=== PATIENT | female | born 1955 | race Caucasian/White ===

== ENCOUNTER 2016-03-07 15:05 | Inpatient (IN) | payer OTHER, BC ==
[2016-03-07] MEDS ORDERED: HYDROmorphONE/DILAUDID 1 MG/ML SYR IVP ONE (15:11)
[2016-03-07] MEDS ORDERED: NS 1,000 ML IV ONE (15:11)
--- NOTE | 2016-03-07 15:13 | EDPHY ---
H & P HPI/ROS: CHIEF COMPLAINT: Left hip pain HISTORY OF PRESENT ILLNESS: The patient is a 61 y/o female arriving via EMS complaining of left hip pain secondary to a fall at [facility] today. Per EMS she got off the ski lift and lost control then fell 2-3 feet directly onto her left hip. She had immediate pain and EMS noted deformity to her left hip. She was helmeted and denies striking her head, neck, or back. She did not lose consciousness. She denies weakness, paresthesias, abdominal pain, chest pain, vaginal bleeding, incontinence, or other injuries. She does not use anticoagulants. EMS and ski patroller administered 100mcg IV fentanyl and 2.5mg IV Valium for pain. She has a history of osteoporosis and hypothyroidism, but is otherwise healthy. REVIEW OF SYSTEMS: Constitutional: denies: chills, fever, recent illness, recent injury EENTM: denies: blurred vision, double vision, nose congestion Respiratory: denies: cough, shortness of breath Cardiac: denies: chest pain, irregular heart rate, lightheadedness, palpitations Gastrointestinal/Abdominal: denies: abdominal pain, diarrhea, nausea, vomiting, blood streaked stools Genitourinary: denies: dysuria, frequency, hematuria, pain Musculoskeletal:see HPI Skin: denies: lesions, rash, jaundice, bruising Neurological: denies: headache, numbness, paresthesia, tingling, dizziness, weakness Hematologic/Lymphatic: denies: blood clots, easy bleeding, easy bruising Immunologic/allergic: denies: HIV/AIDS, transplant PRIOR MEDICAL HISTORY: Osteoporosis, hypothyroidism SOCIAL HISTORY: Lives [id number], Smoker EXAM: GENERAL: Well-appearing, well-nourished and in no acute distress. HEAD: Atraumatic, normocephalic. EYES: Pupils equal round and reactive to light, extraocular movements intact, sclera anicteric, conjunctiva are normal. ENT: TMs normal, nares patent, oropharynx clear without exudates. Moist mucous membranes. NECK: Normal range of motion, supple without lymphadenopathy or JVD. LUNGS: Breath sounds clear to auscultation bilaterally and equal. No wheezes rales or rhonchi. HEART: Regular rate and rhythm without murmurs, rubs or gallops. ABDOMEN: Soft, nontender, normoactive bowel sounds. No guarding, no rebound. No masses appreciated. BACK: No CVA tenderness, no spinal tenderness, step-offs or deformities EXTREMITIES: Large hematoma to left anterior femur with tenderness and firmness , normal pulses and movement distally. Other extremities Normal range of motion , no pitting or edema. No clubbing or cyanosis. NEUROLOGICAL: Cranial nerves II through XII grossly intact. Normal speech. 5/ 5 strength, normal movement in all extremities with except of left hip due to pain, normal sensation PSYCH: Normal mood, normal affect. SKIN: Warm, dry, normal turgor, no visible rashes or lesions. Source: Patient, EMS Exam Limitations: No limitations - Medical/Surgical History Hx Asthma: No Hx Chronic Respiratory Disease: No Hx Diabetes: No Hx Cardiac Disease: No Hx Renal Disease: No Hx Cirrhosis: No Hx Alcoholism: No Hx HIV/AIDS: No Hx Splenectomy or Spleen Trauma: No - Family History Significant Family History: No pertinent family hx - Social History Smoking Status: Current every day smoker Drug Use: None Constitutional: Initial Vital Signs Temperature (C) 37.3 C 03/07/16 15:24 Heart Rate 75 03/07/16 15:24 Respiratory Rate 18 03/07/16 15:24 Blood Pressure 180/100 H 03/07/16 15:24 O2 Sat (%) 99 03/07/16 15:24 O2 Delivery Mode Nasal Cannula O2 (L/minute) 2 Allergies/Adverse Reactions: adhesive Allergy (Verified 03/07/16 15:27) codeine Allergy (Verified 03/07/16 16:37) Itching ibuprofen Allergy (Verified 03/07/16 15:28) Iodinated Contrast Media - Oral and Allergy (Verified 03/07/16 16:36) shellfish derived Allergy (Verified 03/07/16 15:28) Tetracyclines Allergy (Verified 03/07/16 15:27) Home Medications: Medication Instructions Recorded Thyroid [[place] Thyroid 60 MG (*)] 60 mg PO DAILY10 03/07/16 Medical Decision Making - Diagnostics Imaging: X-ray: [Pelvis x-ray] was obtained. I viewed the images myself on the PACS system. My interpretation of the images is: proximal left femur fracture, displaced. The radiologist interpretation is [pending at this time]. I discussed the x-ray findings with the [patient]. ED Course/Re-evaluation: MDM: This is a healthy 61 y/o female, with a history of osteoporosis, presenting with a large, firm, and tender hematoma to her left anterior femur secondary to a fall while skiing today. Plan for pain management and x-ray imaging. IV established by EMS. Labs drawn including CBC, CHEM, PTPTT. 1mg IV Dilaudid and 1L IV NS administered. 1345: Reassessed patient. Her pain is well controlled at this time. Discussed x- ray results. Her last PO intake was 08:00 this morning. 1615: Consulted with Dr. Saavedra, orthopedist, he plans to take patient to OR today. DIFFERENTIALS: Partial list of the Differential diagnosis considered include but were not limited to: Fracture, hematoma, pelvic fracture and although unlikely based on the history and physical exam, I also considered dislocation, low back injury. I discussed these differential diagnoses and the plan with the patient as well as the usual and expected course. The patient understands that the diagnosis is provisional and that in medicine we are not always correct and that further workup is often warranted. Usual and customary warnings were given. All of the patient's questions were answered. The patient was instructed to return to the emergency department should the symptoms at all worsen or return, otherwise to follow up with the physician as we discussed. - Data Points Laboratory Results: Laboratory Results 03/07/16 17:20 03/07/16 17:20 Medications Given: Discontinued Medications Hydromorphone HCl (Dilaudid) 1 mg IVP EDNOW ONE Stop: 03/07/16 15:12 Last Admin: 03/07/16 15:09 Dose: 1 mg Sodium Chloride (Ns) 1,000 mls @ 0 mls/hr IV EDNOW ONE PRN Reason: Wide Open Stop: 03/07/16 15:12 Last Admin: 03/07/16 15:31 Dose: 1,000 mls Cefazolin Sodium/Dextrose (Ancef 2 Gm (Premix)) 100 mls @ 200 mls/hr IV ONCALL ONE PRN Reason: Protocol Stop: 03/07/16 17:24 Last Admin: 03/07/16 22:11 Dose: Not Given Cefazolin Sodium/Dextrose (Ancef 1 Gm (Premix)) 50 mls @ 200 mls/hr IV Q8HRS GABI PRN Reason: Protocol Stop: 03/08/16 06:14 Last Admin: 03/07/16 22:12 Dose: Not Given Cefazolin Sodium/Dextrose (Ancef 1 Gm (Premix)) 50 mls @ 200 mls/hr IV Q8H GABI PRN Reason: Protocol Stop: 03/08/16 11:14 Last Admin: 03/08/16 11:29 Dose: 50 mls Departure - Departure Disposition: [facility] Acute Clinical Impression: Femur fracture, left Qualifiers: Qualifier Code: (S72.352A) Displaced comminuted fracture of shaft of left femur , initial encounter for closed fracture Condition: Good Report Scribed for: Bebeto Rosario Report Scribed by: Jordana Weems Date of Report: 03/07/16 Time of Report: 15:17
--- NOTE | 2016-03-07 16:47 | DX ---
AP Supine Pelvis and Left Femur Clinical History: 61-year-old female with left hip pain after a fall while skiing. Comparison Study: None. Findings: AP SUPINE PELVIS, at 3:29 p.m.: There is an acute mildly-displaced and partially comminuted left fem oral intertrochanteric fracture, with some associated varus angulation. The femoral head is still se ated within the acetabulum. The ischial pubic rami are intact, and the right hip is anatomically ali gned. Multilevel lower lumbar degenerative change is seen. There is no symphysis pubis or SI joint diastasis. There are phleboliths in the right hemipelvis. Impression: Acute left femoral intertrochanteric fracture, with partial comminution and varus angula tion. When clinically feasible, a DEXA scan is suggested to determine if there is systemic bone demineraliz ation. LEFT FEMUR (Four Views, at 3:30 p.m.): Again noted is an acute left femoral intertrochanteric fractu re, with partial comminution and varus angulation. The remainder of the left femur is essentially un remarkable. There is a prominent enthesophyte along the anterosuperior patella where the quadriceps tendon inserts. There is no suprapatellar joint effusion. There is cloth artifact, which obscures p ortions of the femoral osseous anatomy. Impression: Acute left femoral intertrochanteric fracture, with partial comminution and varus angula tion.
[2016-03-07] MEDS ORDERED: ceFAZolin 2 GM/DEXTROSE 100 ML IV ONE (16:55)
[2016-03-07] MEDS ORDERED: CEFAZOLIN 2 GM/DEXTROSE/100 ML BAG IV ONE (17:12)
[2016-03-07] MEDS ORDERED: BUPIVACAINE/EPI 0.5% 30 ML SDV ONE (17:17)
[2016-03-07 17:33] LABS: % IMMATURE GRANULYOCYTES 0.3 % (0.0-1.1); ABSOLUTE IMMATURE GRANULOCYTES 0.05 10^3/uL (0.00-0.10); ADD DIFF? NO; ADD MORPH? NO; ADD SCAN? NO; ATYPICAL LYMPHOCYTE FLAG 0 (0-99); FRAGMENT RBC FLAG 0 (0-99); HEMATOCRIT 36.4 % (38.0-47.0); HEMOGLOBIN 12.7 g/dL (12.6-16.3); LEFT SHIFT FLG 20 (0-99); LIPEMIA HEMOLYSIS FLAG 90 (0-99); MEAN CELL HEMOGLOBIN 32.3 pg (27.9-34.1); MEAN CELL HEMOGLOBIN CONCENTR. 34.9 g/dL (32.4-36.7); MEAN CELL VOLUME 92.6 fL (81.5-99.8); MEAN PLATELET VOLUME 9.6 fL (8.7-11.7); PLATELET CLUMPS FLAG 0 (0-99); PLATELET COUNT 227 10^3/uL (150-400); RED BLOOD CELL COUNT 3.93 10^6/uL (4.18-5.33); RED CELL DISTRIBUTION WIDTH 12.1 % (11.5-15.2)
[2016-03-07 17:43] LABS: APTT 26.3 SEC (23.0-38.0)
[2016-03-07 17:45] LABS: ANION GAP 10 mEq/L (8-16); CALCIUM 8.9 mg/dL (8.5-10.4); CARBON DIOXIDE 23 mEq/l (22-31); CHLORIDE 107 mEq/L (97-110); CREATININE 0.7 mg/dL (0.6-1.0); GLOMERULAR FILTRATION RATE > 60; GLUCOSE 101 mg/dL (70-100); POTASSIUM 3.7 mEq/L (3.5-5.2); SODIUM 140 mEq/L (134-144)
--- NOTE | 2016-03-07 17:46 | GCON ---
[f rep st] CONSULTATION ORTHOPEDIC CONSULTATION. DATE OF CONSULTATION: 03/07/2016 REASON FOR CONSULTATION: Left intertrochanteric hip fracture. HISTORY OF PRESENT ILLNESS: The patient is a 61-year-old female, who fell off the chair lift at [facility] earlier today, was brought by EMS to the emergency room. X-rays were obtained, which shavonne wed a displaced intertrochanteric-subtrochanteric hip fracture on the left. I was consulted, saw her in the emergency department. PAST MEDICAL HISTORY: Osteoporosis, hypothyroidism. SOCIAL HISTORY: She does smoke 1 pack per day. Occasional alcohol use. MEDICATIONS: Victor Thyroid. ALLERGIES: Codeine, although she can take Percocet, ibuprofen, iodine, tetracycline, and tape adhesi ve, although she does do okay with cloth tape. REVIEW OF SYSTEMS: No shortness of breath or chest pain. No other obvious injuries. Otherwise, rev iew of systems is negative. PHYSICAL EXAM: A healthy appearing 61-year-old female. Her and cousin are at the bedside. VITAL SIGNS: Blood pressure is 180/100, heart rate 75, respiratory rate 18, oxygen saturation 99% on room air, temperature is 37.3. HEENT: Normocephalic, atraumatic. Extraocular muscles are intact. NECK: Supple. There is no lymphadenopathy. No JVD. CHEST: Clear to auscultation. CARDIOVASCULA R: Regular rate and rhythm. ABDOMEN: Soft, nontender, nondistended. EXTREMITY EXAM: Left hip: T here is some bruising over the greater trochanter, a little bit of external rotation. There is no sh ortening. Pain with any movement. Compartments are soft, including the calf, 5/5 ankle dorsiflexion and plantar flexion, 2+ dorsalis pedis and posterior tibial pulses. X-RAYS: Two views of the hip show the displaced intertrochanteric/subtrochanteric fracture of the le ft hip. No significant osteoarthritis in the hip. ASSESSMENT: Intertrochanteric left hip fracture. PLAN: I recommend proceeding with intramedullary nailing of the left hip. Risks and benefits of the surgery, including infection, postoperative blood clots, limited weightbearing were all discussed. She understands these risks and wished to proceed. We will plan on surgery at about 6 o'clock karsten zelaya. We will keep her n.p.o. /[id number]/MODL
[2016-03-07 18:00] LABS: INR 1.05 (0.83-1.16); PROTIME(PATIENT) 13.6 SEC (12.0-15.0)
[2016-03-07] MEDS ORDERED: MIDAZOLAM 2 MG/2 ML VIAL ONE (19:10)
[2016-03-07] MEDS ORDERED: PROPOFOL 200 MG/20 ML VIAL ONE (19:12)
[2016-03-07] MEDS ORDERED: LIDOCAINE 2% 5 ML SDV ONE (19:12)
[2016-03-07] MEDS ORDERED: fentaNYL 100 MCG/2 ML INJ ONE ×3 (19:12→20:57)
[2016-03-07] MEDS ORDERED: MAGNESIUM HYDROXIDE 30 ML UDCUP PO PRN (19:20)
[2016-03-07] MEDS ORDERED: ONDANSETRON 4 MG/2 ML VIAL IVP PRN (19:20)
[2016-03-07] MEDS ORDERED: BISACODYL 10 MG SUPP PR PRN (19:20)
[2016-03-07] MEDS ORDERED: TEMAZEPAM 15 MG CAP PO PRN (19:20)
[2016-03-07] MEDS ORDERED: POLYETHYLENE GLYCOL 3350 17 GM PKT PO PRN (19:20)
[2016-03-07] MEDS ORDERED: LACTULOSE 20 GM/30 ML UDCUP PO PRN (19:20)
[2016-03-07] MEDS ORDERED: DEXAMETHASONE 4 MG/ML VIAL ONE (19:39)
--- NOTE | 2016-03-07 20:50 | DX ---
Intraoperative fluoroscopy during left femur ORIF. March 07, 2016. Discussion: 78.7 seconds of intraoperative fluoroscopy utilized by Dr. Saavedra during left femur kia carlos. Matrix radiographs demonstrate placement of a left femoral nail bridging a mid diaphyseal fract ure and an intratrochanteric fracture. No hardware complication. Impression: 1. Intraoperative fluoroscopy during left femoral ORIF.
[2016-03-07] MEDS ORDERED: MEPERIDINE 25 MG/ML SYR ONE (20:57)
--- NOTE | 2016-03-07 20:57 | POSTOPPROG ---
Post Op Note Date of Operation: 03/07/16 Surgeon: Ruben Saavedra Anesthesiologist: naheed Anesthesia: GET(General Endotracheal) Pre-op Diagnosis: Lt subtroch fracture Post-op Diagnosis: same Procedure: LT TFN Inf/Abcess present in the surg proc area at time of surgery?: No EBL: 50-100 Complications: none
--- NOTE | 2016-03-07 21:16 | DX ---
AP pelvis, 2 views. March 07, 2016. History: Postop. Findings: Surgical operative nail placement involves the left femur, reducing an intratrochanteric pr oximal femoral fracture and 2 oblique midshaft diaphyseal fractures. No hardware complication. Impression: 1. Operative internal fixation of left femoral fractures with intramedullary nail.
--- NOTE | 2016-03-07 22:22 | GOP ---
[f rep st] OPERATIVE REPORT DATE OF OPERATION: 03/07/2016 SURGEON: Ruben Saavedra MD ANESTHESIA: General. ANESTHESIOLOGIST: 1. Devin Connolly MD. 2. Ramón Amin MD. PREOPERATIVE DIAGNOSIS: Left subtrochanteric hip fracture. POSTOPERATIVE DIAGNOSIS: Left subtrochanteric hip fracture. PROCEDURE PERFORMED: Intramedullary nailing, left hip. FINDINGS: ESTIMATED BLOOD LOSS: 100 mL. INDICATIONS: The patient is a 61-year-old female who fell skiing today, sustained a subtrochanteric fracture. Decision was made to proceed with operative fixation. DESCRIPTION OF PROCEDURE: She was taken to the operating room while on the gurney. Dr. Connolly adm inistered general endotracheal tube anesthesia. She was then transferred onto the fracture table. L eft lower extremity was placed in a traction boot. Right lower extremity was placed in a well-padded well-leg schulte and moved out of the way. I applied gentle traction, internal rotation, reduced the fracture, confirmed its position with AP lateral fluoroscopic imaging. We then prepped the left hip in the usual sterile fashion, got my starting point, made a small gela incision in the skin. Using our entry reamer, entered the femoral canal. She measured to a size 11 mm. This was tapped into chay ce. We placed our external jig, drilled our guidewire into our head and neck, and placed our 90 mm s piral blade, tapped it in place. Distal locking screw. As I was placing the jig, I noticed there wa s a small crack distally around the tip of the nail. Decided to remove the nail go to a long nail to protect that area of the femur in case that was going to crack all the way through. So, long guidew francisco was passed over the nail and nail was removed. Spiral blade was removed. We changed it out. We reamed up to a size 11.5. Placed a size 10 mm x 340 mm nail over the external wire. Wire was pulle d. I was able to use the previous spiral blade and place it into the head and neck with a good, secu re fixation. One screw was placed distally using perfect cowlitz techniques. Final imaging was obtai aly which showed satisfactory reduction of the proximal fracture. Difficult to visualize the fractur e on the tip of the previous nail. It appeared well aligned. Wounds were irrigated. Deep layers cl osed with 0 Vicryl, superficial layers closed with 2-0 Vicryl, skin was closed with bartolo. I insti lled 20 mL of 0.5% Marcaine with epinephrine around the incision. Sterile dressing was applied. Pat ient was awakened from anesthesia, taken to the recovery room in satisfactory condition. There were no immediate intraoperative complications. COMPLICATIONS: None. DRAINS: None. IMPLANTS: Synthes long TFN nail 10 x 340 mm. One distal locking screw. /[id number]/MODL
[2016-03-07] MEDS: LR 1,000 ML IV SCH (22:53)
[2016-03-07] MEDS: DIAZEPAM 5 MG TAB PO PRN (22:54)
[2016-03-07] MEDS: SENNOSIDES/DOCUSATE SODIUM TAB PO SCH (22:54)
[2016-03-08 04:47] LABS: HEMATOCRIT 27.7 % (38.0-47.0); HEMOGLOBIN 9.3 g/dL (12.6-16.3)
[2016-03-08] MEDS: LR 1,000 ML IV SCH (05:47)
[2016-03-08] MEDS: DIAZEPAM 5 MG TAB PO PRN ×4 (05:48→23:54)
[2016-03-08] MEDS: OXYCODONE/APAP 5/325 TAB PO PRN ×4 (05:48→18:11)
[2016-03-08] MEDS: SENNOSIDES/DOCUSATE SODIUM TAB PO SCH ×2 (09:43→22:25)
[2016-03-08] MEDS: RIVAROXABAN 10 MG TAB PO SCH (09:44)
[2016-03-08] MEDS: THYROID 60 MG TAB PO SCH (09:52)
--- NOTE | 2016-03-08 17:43 | SOAPPROG ---
[facility] Progress Note Assessment/Plan: Assessment: Plan: 03/08/16 17:41 POD#1 TFN Lt femur 50% wbing x 6 weeks xarelto x 21 days Subjective: feeling a little better tonight Objective: dressing in place small amount bloody drainage leg lengths equal calf soft 5/5 df/pf 2+ dp/tp Vital Signs Temp Pulse Resp BP Pulse Ox 37.3 C 94 14 103/57 L 96 03/08/16 15:30 03/08/16 15:30 03/08/16 15:30 03/08/16 15:30 03/08/16 15:30 Laboratory Results 03/08/16 04:11 03/07/16 03/08/16 03/09/16 05:59 05:59 05:59 Intake Total 1700 Output Total 100 900 Balance 1600 -900 PT 13.6 SEC (12.0-15.0) 03/07/16 17:20 INR 1.05 (0.83-1.16) 03/07/16 17:20 ICD10 Worksheet Patient Problems: Problems Problem Status Diagnosed Femur fracture, left Acute
[2016-03-09] MEDS: THYROID 60 MG TAB PO SCH (08:27)
[2016-03-09] MEDS: RIVAROXABAN 10 MG TAB PO SCH (08:27)
[2016-03-09] MEDS: SENNOSIDES/DOCUSATE SODIUM TAB PO SCH ×2 (08:28→20:10)
[2016-03-09] MEDS: DIAZEPAM 5 MG TAB PO PRN ×2 (08:28→16:23)
[2016-03-09] MEDS: OXYCODONE/APAP 5/325 TAB PO PRN ×3 (08:32→18:28)
--- NOTE | 2016-03-09 13:14 | SOAPPROG ---
[facility] Progress Note Assessment/Plan: Assessment: Plan: 03/08/16 17:41 POD#1 TFN Lt femur 50% wbing x 6 weeks xarelto x 21 days 03/09/16 13:12 POD#2 TFN lt femur 50% wbing x 6 weeks xarelto x 21 days may need snf Subjective: feeling a little better Today Objective: will change dressing Today calf soft 5/5 df/pf 1+ dp/tp Vital Signs Temp Pulse Resp BP Pulse Ox 36.8 C 100 15 107/67 90 L 03/09/16 12:15 03/09/16 12:15 03/09/16 12:15 03/09/16 12:15 03/09/16 12:15 Laboratory Results 03/08/16 04:11 03/08/16 03/09/16 03/10/16 05:59 05:59 05:59 Intake Total 1700 750 Output Total 100 1200 250 Balance 1600 -450 -250 PT 13.6 SEC (12.0-15.0) 03/07/16 17:20 INR 1.05 (0.83-1.16) 03/07/16 17:20 ICD10 Worksheet Patient Problems: Problems Problem Status Diagnosed Femur fracture, left Acute
[2016-03-10] MEDS: DIAZEPAM 5 MG TAB PO PRN ×3 (05:54→20:27)
[2016-03-10] MEDS: OXYCODONE/APAP 5/325 TAB PO PRN ×2 (05:55→08:12)
[2016-03-10] MEDS: SENNOSIDES/DOCUSATE SODIUM TAB PO SCH ×2 (08:12→20:14)
[2016-03-10] MEDS: RIVAROXABAN 10 MG TAB PO SCH (08:12)
[2016-03-10] MEDS: THYROID 60 MG TAB PO SCH (09:34)
--- NOTE | 2016-03-10 14:14 | SOAPPROG ---
SOAP Progress Note Assessment/Plan: Assessment: Plan: - pt prefers to try Tylenol over oxycodone, constipation - PT consult tomorrow to see if she can go home with rehab services - likely d/c to home tomorrow 03/10/16 14:12 Subjective: Doing well, has not attempted stairs yet, somewhat unstable on the walker today. Has at home and sister coming on Thursday Objective: Vital Signs Temp Pulse Resp BP Pulse Ox 36.9 C 128 H 18 93/62 L 97 03/10/16 08:33 03/10/16 08:33 03/10/16 08:33 03/10/16 08:33 03/10/16 10:33 Laboratory Results 03/08/16 04:11 03/09/16 03/10/16 03/11/16 05:59 05:59 05:59 Intake Total 750 250 Output Total 1200 1350 Balance -450 -1100 PT 13.6 SEC (12.0-15.0) 03/07/16 17:20 INR 1.05 (0.83-1.16) 03/07/16 17:20 Dressing CDI, mod/severe knee effusion, possible grade 1-2 ACL, compartments soft, NVI distally - Time Spent With Patient Time Spent With Patient: 20 - Pending Discharge Pending Discharge Within 24 Hours: Yes Pending Discharge Within 48 Hours: No Pending Discharge Date: 03/11/16 Pending Discharge Time: 11:00 ICD10 Worksheet Patient Problems: Problems Problem Status Diagnosed Femur fracture, left Acute
[2016-03-10] MEDS: oxyCODONE IR 5 MG TAB PO PRN ×2 (15:50→20:27)
[2016-03-10] MEDS: ACETAMINOPHEN 325 MG TAB PO PRN (15:55)
[2016-03-11 00:33] VITALS: RESP 16
[2016-03-11] MEDS: ACETAMINOPHEN 325 MG TAB PO PRN (07:12)
[2016-03-11] MEDS: DIAZEPAM 5 MG TAB PO PRN ×2 (07:12→16:05)
[2016-03-11 07:54] VITALS: BP 101/62; PULSE 92; TEMP 98.7; O2SAT 98
[2016-03-11] MEDS: RIVAROXABAN 10 MG TAB PO SCH (09:09)
[2016-03-11] MEDS: SENNOSIDES/DOCUSATE SODIUM TAB PO SCH (09:09)
[2016-03-11] MEDS: THYROID 60 MG TAB PO SCH (09:09)
--- NOTE | 2016-03-11 12:37 | PDIAF ---
- Diagnosis Code Status: Full Code - Medication Management Discharge Medications: Medications to Continue on Transfer Thyroid [[place] Thyroid 60 MG (*)] 60 mg PO DAILY10 03/07/16 [Last Taken ] Diazepam [Valium 5 MG (*)] 5 mg PO Q6 PRN #0 tab 03/11/16 [Last Taken Unknown] Rivaroxaban [Xarelto 10mg (*)] 10 mg PO DAILY #0 tab 03/11/16 [Last Taken Unknown] oxyCODONE IR [Oxycodone Ir (*)] 5 mg PO Q4HRS PRN #0 tab 03/11/16 [Last Taken Unknown] Discharge Medications: Refer to the Discharge Home Medication list for PRN reason. PICC Care - Routine: N/A - Orders Services needed: Physical Therapy Diet Recommendation: no restrictions on diet Diet Texture: Regular Texture Diet Levine: Not applicable Wound Care Instructions: Keep dressings on will remove in office, may shower over dressing Activity/Weight Bearing Restrictions: WBAT, with walker - Follow Up Care Current Providers and Referrals: NONE *PRIMARY CARE P,. [Primary Care Provider] - As per Instructions
== END 2016-03-11 16:17 | disposition home health service (06) | DRG 482 ==
LOC: OBSVTOIN 19:21 → F3N 21:55
PROVIDERS: ADMIT Orthopaedic Surgery; ATTEND Orthopaedic Surgery
PROC: 0QS706Z Reposition Left Upper Femur with Intramedullary Internal Fixation Device, Open Approach (ICD-10-PCS; principal; 2016-03-07 18:30)
DX: S72.142A Displaced intertrochanteric fracture of left femur, initial encounter for closed fracture (principal); V98.3XXA Accident to, on or involving ski lift, initial encounter; Y93.23 Activity, snow (alpine) (downhill) skiing, snowboarding, sledding, tobogganing and snow tubing; Y92.838 Other recreation area as the place of occurrence of the external cause; E03.9 Hypothyroidism, unspecified; F17.210 Nicotine dependence, cigarettes, uncomplicated; M81.0 Age-related osteoporosis without current pathological fracture
CPT/HCPCS: 96374; 97001-GP; 97003-GO; 97110-GP; 97116-GP; 97530-GP; 97535-GO; C1713; C1769; J0690; J1100; J1170; J2250; J2704; J3010